=== PATIENT | female | born 1990 | race Caucasian/White ===

== ENCOUNTER 2017-08-09 08:41 | Emergency (ER) | payer OTHER ==
[2017-08-09 08:59] VITALS: BP 103/83
--- NOTE | 2017-08-09 10:24 | UC ---
General HPI - HPI Summary HPI Summary: 26 yo female c/o sore throat, cough, unsteady dizziness last few days, progressively worse. Has 16mo child, not currently sick. Is concerned because she may be around immunocompromised individual next week. No sob / cp / palpitations. No vomiting. No vis / aud changes (except muffled). No rash. - History of Current Complaint Chief Complaint: UCRespiratory Stated Complaint: THROAT,SINUS PRESSURE Time Seen by Provider: 08/09/17 09:20 Hx Obtained From: Patient Hx Last Menstrual Period: Jun 2017 - Allergy/Home Medications Allergies/Adverse Reactions: Allergies Allergy/AdvReac Type Severity Reaction Status Date / Time No Known Allergies Allergy Verified 08/09/17 08:53 PMH/Surg Hx/FS Hx/Imm Hx Previously Healthy: Yes - Surgical History Surgical History: None - Social History Alcohol Use: None Substance Use Type: None Smoking Status (MU): Never Smoked Tobacco - Immunization History Most Recent Influenza Vaccination: NOT YET 2017 Review of Systems Constitutional: Other - fatigue, subj fever Skin: Negative Eyes: Negative ENT: Nasal Discharge, Sinus Congestion, Other - ear pressure au Respiratory: Cough Cardiovascular: Negative Gastrointestinal: Negative Genitourinary: Negative Motor: Negative Neurovascular: Negative, Decreased Sensation Neurological: Negative Is Patient Immunocompromised?: No All Other Systems Reviewed And Are Negative: Yes Physical Exam Triage Information Reviewed: Yes Appearance: Well-Nourished - looks tired, sitting up. NAD. Nontoxic appearance. Vital Signs: Initial Vital Signs Temp 99.4 F 08/09/17 08:53 Pulse 83 08/09/17 08:53 Resp 16 08/09/17 08:53 BP 103/83 08/09/17 08:53 Pulse Ox 100 08/09/17 08:53 Vital Signs Reviewed: Yes Eye Exam: Normal ENT: Positive: TM dull - dull au, rtx'd au. Neck exam: Normal Neck: Positive: Supple, Nontender, No Lymphadenopathy Respiratory Exam: Normal Respiratory: Positive: Chest non-tender, Lungs clear, No respiratory distress, No accessory muscle use, Wheezing - occas exp wheeze with rhonchorus cough Cardiovascular Exam: Normal Cardiovascular: Positive: RRR, No Murmur, Pulses Normal, Brisk Capillary Refill Abdominal Exam: Normal Abdomen Description: Positive: Nontender Musculoskeletal Exam: Normal Neurological Exam: Normal Psychological Exam: Normal Skin Exam: Normal - no visible or reported rash Course/Dx - Course Course Of Treatment: Infl a/b neg. RST neg. no new prob in [facility]. Questions answered as posed to the best of my ability. - Differential Dx - Multi-Symptom Provider Diagnoses: sinusitis. bronchitis Discharge - Discharge Plan Condition: Stable Disposition: HOME Prescriptions: Albuterol HFA INHALER* [Ventolin HFA Inhaler*] 1 - 2 puff INH Q4H PRN #1 mdi PRN Reason: Wheezing Azithromyxin JAMES (NF) [Z-James (Zithromax) 250 mg tabs #6] 2 tab PO .TODAY, THEN 1 DAILY #6 tab Fluconazole [Diflucan 150 MG (NF)] 150 mg PO ONCE #2 tab Meclizine TAB* [Antivert 12.5 TAB*] 25 mg PO Q8H PRN #30 tab PRN Reason: Dizziness Patient Education Materials: Sinusitis (ED), Acute Bronchitis (ED) Referrals: MARV Cruz [Primary Care Provider] - Additional Instructions: Follow up primary care physician in 1-2 weeks for recheck. Seek medical attention for worse or new problems in the meantime.
== END 2017-08-09 10:35 | disposition home or self-care (01) ==
LOC: UCCORT 08:41
DX: J40 Bronchitis, not specified as acute or chronic (principal); J32.9 Chronic sinusitis, unspecified
CPT/HCPCS: 87502; 87651; 99212; G0463

== ENCOUNTER 2018-09-27 13:35 | Emergency (ER) | payer OTHER ==
[2018-09-27 14:00] VITALS: BP 96/69
--- NOTE | 2018-09-27 14:18 | UC ---
UC General HPI - HPI Summary HPI Summary: 3 day hx sore throat and sinus congestion. - History of Current Complaint Chief Complaint: UCGeneralIllness Stated Complaint: ST/CONGESTION Time Seen by Provider: 09/27/18 13:56 Hx Obtained From: Patient Hx Last Menstrual Period: 09/10/18 Onset/Duration: Gradual Onset Timing: Constant Pain Intensity: 7 Associated Signs & Symptoms: Negative: Fever - Allergy/Home Medications Allergies/Adverse Reactions: Allergies Allergy/AdvReac Type Severity Reaction Status Date / Time No Known Allergies Allergy Verified 09/27/18 14:00 PMH/Surg Hx/FS Hx/Imm Hx Previously Healthy: Yes - Surgical History Surgical History: None - Family History Known Family History: Positive: Non-Contributory - Social History Lives: With Family Alcohol Use: None Substance Use Type: None Smoking Status (MU): Never Smoked Tobacco - Immunization History Most Recent Influenza Vaccination: NOT YET 2017 Vaccination Up to Date: Yes Review of Systems All Other Systems Reviewed And Are Negative: Yes Constitutional: Positive: Negative Skin: Positive: Negative Eyes: Positive: Negative ENT: Positive: Sore Throat, Sinus Congestion Respiratory: Positive: Negative Cardiovascular: Positive: Negative Gastrointestinal: Positive: Negative Genitourinary: Positive: Negative Motor: Positive: Negative Neurovascular: Positive: Negative Musculoskeletal: Positive: Negative Neurological: Positive: Negative Psychological: Positive: Negative Is Patient Immunocompromised?: No Physical Exam Triage Information Reviewed: Yes Appearance: Well-Appearing Vital Signs: Initial Vital Signs Temp 98.3 F 09/27/18 13:58 Pulse 102 09/27/18 13:58 Resp 18 09/27/18 13:58 BP 96/69 09/27/18 13:58 Pulse Ox 100 09/27/18 13:58 Vital Signs Reviewed: Yes Eyes: Positive: Conjunctiva Clear ENT: Positive: Pharynx normal, Nasal congestion, TMs normal, Uvula midline. Negative: Nasal drainage, Trismus, Muffled voice, Hoarse voice, Sinus tenderness Neck: Positive: Supple, Nontender, No Lymphadenopathy Respiratory: Positive: Lungs clear, Normal breath sounds Cardiovascular: Positive: RRR, No Murmur. Negative: Tachycardia Abdomen Description: Positive: Nontender, No Organomegaly, Soft. Negative: Distended, Guarding Bowel Sounds: Positive: Present Musculoskeletal: Positive: ROM Intact Neurological: Positive: Alert Psychological: Positive: Age Appropriate Behavior Skin Exam: Normal Diagnostics - Laboratory Diagnostic Studies Completed/Ordered: rapid strep=neg Course/Dx - Course Course Of Treatment: rapid strep=neg. tx supportive - Differential Dx - Multi-Symptom Provider Diagnoses: pharyngitis. uri Discharge - Sign-Out/Discharge Documenting (check all that apply): Patient Departure All imaging exams completed and their final reports reviewed: No Studies - Discharge Plan Condition: Stable Disposition: HOME Patient Education Materials: Pharyngitis (ED), Upper Respiratory Infection (DC) Referrals: MARV Goodrich [Medical Doctor] - Additional Instructions: FOLLOW UP [facility] IF NOT BETTER IN 5 DAYS OR SOONER IF WORSE. - Billing Disposition and Condition Condition: STABLE Disposition: Home
== END 2018-09-27 14:53 | disposition home or self-care (01) ==
LOC: UCCORT 13:35
DX: J02.9 Acute pharyngitis, unspecified (principal); J06.9 Acute upper respiratory infection, unspecified
CPT/HCPCS: 87651; 99211; G0463

== ENCOUNTER 2018-10-21 17:19 | Emergency (ER) | payer OTHER ==
--- NOTE | 2018-10-21 18:56 | UC ---
UC General HPI - HPI Summary HPI Summary: pt c/o nausea with vomiting after most oral intake for the past week. she denies any associated abdominal pain, diarrhea and fever but admits to fatigue. hx of tubal but her lmp is 2 weeks late. denies hx DM, weight loss and marijuanna use. - History of Current Complaint Chief Complaint: UCGI Stated Complaint: VOMITING X 1WEEK Time Seen by Provider: 10/21/18 18:49 Hx Obtained From: Patient Hx Last Menstrual Period: 09/03/18 Pain Intensity: 0 Associated Signs & Symptoms: Positive: Nausea, Vomiting. Negative: Abdominal Pain, Diarrhea, Dysuria, Fever - Allergy/Home Medications Allergies/Adverse Reactions: Allergies Allergy/AdvReac Type Severity Reaction Status Date / Time No Known Allergies Allergy Verified 10/21/18 18:39 PMH/Surg Hx/FS Hx/Imm Hx Previously Healthy: Yes - Surgical History Surgical History: None - Family History Known Family History: Positive: Non-Contributory - Social History Lives: With Family Alcohol Use: Rare Substance Use Type: None Smoking Status (MU): Never Smoked Tobacco - Immunization History Most Recent Influenza Vaccination: NOT YET 2017 Vaccination Up to Date: Yes Review of Systems All Other Systems Reviewed And Are Negative: Yes Constitutional: Negative: Fever Skin: Positive: Negative Eyes: Positive: Negative ENT: Positive: Negative Respiratory: Positive: Negative Cardiovascular: Positive: Negative Gastrointestinal: Positive: Vomiting, Nausea. Negative: Abdominal Pain, Diarrhea Genitourinary: Positive: Negative Motor: Positive: Negative Neurovascular: Positive: Negative Musculoskeletal: Positive: Negative Neurological: Positive: Negative Psychological: Positive: Negative Physical Exam Triage Information Reviewed: Yes Appearance: Well-Appearing Vital Signs: Initial Vital Signs Temp 99 F 10/21/18 18:37 Pulse 94 10/21/18 18:37 Resp 18 10/21/18 18:37 BP 121/75 10/21/18 18:37 Pulse Ox 100 10/21/18 18:37 Vital Signs Reviewed: Yes Eyes: Positive: Conjunctiva Clear ENT: Positive: Pharynx normal, TMs normal. Negative: Nasal congestion, Nasal drainage Neck: Positive: Supple, Nontender, No Lymphadenopathy Respiratory: Positive: Lungs clear, Normal breath sounds Cardiovascular: Positive: RRR, No Murmur Abdomen Description: Positive: Nontender, No Organomegaly, Soft. Negative: CVA Tenderness (R), CVA Tenderness (L), Distended, Guarding Bowel Sounds: Positive: Present Musculoskeletal: Positive: ROM Intact Neurological: Positive: Alert Psychological: Positive: Normal Response To Family, Age Appropriate Behavior Skin Exam: Normal Re-Evaluation - Re-Evaluation First Eval Re-Evaluation Time: 20:35 Change: Improved - pt drank a total of 1 liter in fluids post zodran, half being water and the other was gingerale. her nausea has resolved and she reports feeling much improved and would like discharge to home. Course/Dx - Course Course Of Treatment: non toxic, no acute abdomen. taking po fluids here with no recurrent n/v after the zofran. need for close f/u and recheck stressed at time of discharge. - Diagnoses Provider Diagnosis: Nausea & vomiting Discharge - Sign-Out/Discharge Documenting (check all that apply): Patient Departure All imaging exams completed and their final reports reviewed: No Studies - Discharge Plan Condition: Stable Disposition: HOME Prescriptions: Ondansetron ODT TAB* [Zofran 4 MG Odt TAB*] 4 mg PO Q6H PRN #20 tab.odt PRN Reason: Nausea/Vomiting Patient Education Materials: Acute Nausea and Vomiting (ED) Referrals: MARV Cruz [Medical Doctor] - As Soon As Possible - Billing Disposition and Condition Condition: STABLE Disposition: Home - Attestation Statements Provider Attestation: Per institutional requirements, I have reviewed the chart, however, I was not consulted specifically or made aware of this patient by the midlevel provider. I did not personally evaluate, interact with , or disposition this patient.
[2018-10-21] MEDS ORDERED: Ondansetron ODT TAB* 4 MG PO ONE (19:07)
[2018-10-21 20:33] VITALS: BP 126/77
== END 2018-10-21 20:45 | disposition home or self-care (01) ==
LOC: UCCORT 17:19
DX: R11.2 Nausea with vomiting, unspecified (principal)
CPT/HCPCS: 81003; 84702; 99212; A9270-GY; G0463

== ENCOUNTER 2019-08-05 16:44 | Emergency (ER) | payer OTHER ==
[2019-08-05 17:38] VITALS: BP 134/72
--- NOTE | 2019-08-05 18:11 | ED ---
Throat Pain/Nasal Congestion - HPI Summary HPI Summary: 28 yr old female with the complaint of bilateral ear pain, uri symptoms runny nose for past four days and non productive cough. She has no fever or chills. She has other ill exposures in the house. Her symptoms are moderate - History of Current Complaint Chief Complaint: UCRespiratory Time Seen by Provider: 08/05/19 17:44 - Allergies/Home Medications Allergies/Adverse Reactions: Allergies Allergy/AdvReac Type Severity Reaction Status Date / Time No Known Allergies Allergy Verified 08/05/19 17:33 PMH/Surg Hx/FS Hx/Imm Hx - Surgical History Surgery Procedure, Year, and Place: tubal, bx left breast Infectious Disease History: No Infectious Disease History: Denies: Traveled Outside the [place] in Last 30 Days - Family History Known Family History: Positive: Non-Contributory - Social History Alcohol Use: Rare Substance Use Type: Reports: None Smoking Status (MU): Never Smoked Tobacco Review of Systems Constitutional: Negative Positive: Ear Ache, Nasal Discharge All Other Systems Reviewed And Are Negative: Yes Physical Exam Triage Information Reviewed: Yes Vital Signs On Initial Exam: Initial Vitals Temp Pulse Resp BP Pulse Ox 98.7 F 90 16 134/72 99 08/05/19 17:34 08/05/19 17:34 08/05/19 17:34 08/05/19 17:34 08/05/19 17:34 Vital Signs Reviewed: Yes Appearance: Positive: Well-Appearing, No Pain Distress Skin: Positive: Warm, Skin Color Reflects Adequate Perfusion Head/Face: Positive: Normal Head/Face Inspection Eyes: Positive: EOMI, AURELIANO ENT: Positive: Normal ENT inspection, TM dull - bilateral, TM red - bilateral Neck: Positive: Nontender Respiratory/Lung Sounds: Positive: Clear to Auscultation, Breath Sounds Present Cardiovascular: Positive: RRR. Negative: Murmur Abdomen Description: Positive: Nontender. Negative: Distended Musculoskeletal: Positive: Strength/ROM Intact Neurological: Positive: Sensory/Motor Intact, Alert, Oriented to Person Place, Time, CN Intact II-III, Normal Gait, Speech Normal Psychiatric: Positive: Normal Diagnostics - Vital Signs Vital Signs Temp Pulse Resp BP Pulse Ox 08/05/19 17:34 98.7 F 90 16 134/72 99 - Laboratory Lab Statement: Any lab studies that have been ordered have been reviewed, and results considered in the medical decision making process. EENT Course/Dx - Course Course Of Treatment: 28 yr old with URI, and om. Rx with amox - Diagnoses Provider Diagnoses: Bilateral otitis media, Upper respiratory infection Discharge ED - Sign-Out/Discharge Documenting (check all that apply): Patient Departure All imaging exams completed and their final reports reviewed: No Studies - Discharge Plan Condition: Good Disposition: HOME Prescriptions: Amoxicillin PO (*) [Amoxicillin 500 MG CAP*] 500 mg PO TID #30 cap Patient Education Materials: Ear Infection (ED) Referrals: Makayla Flowers MD [Primary Care Provider] - - Billing Disposition and Condition Condition: GOOD Disposition: Home
== END 2019-08-05 18:09 | disposition home or self-care (01) ==
LOC: UCCORT 16:44
DX: H66.93 Otitis media, unspecified, bilateral (principal); J06.9 Acute upper respiratory infection, unspecified
CPT/HCPCS: 99212; G0463